=== PATIENT | female | born 2000 | race Native Hawaiian/Other Pacific Islander ===

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

== ENCOUNTER 2020-01-11 08:00 | Outpatient (CLI) | payer BC | END 2020-01-11 23:59 | disposition home or self-care (01) | LOC: LAB.R 08:00 | PROVIDERS: ATTEND Physician Assistant | DX: H60.92 Unspecified otitis externa, left ear (principal) | CPT/HCPCS: 87070; 87077; 87181; 87205 ==